=== PATIENT | female | born 1985 ===

== ENCOUNTER 2023-03-04 04:51 | Observation (INO) | payer MEDICAID ==
[2023-03-04] MEDS ORDERED: Tranexamic Acid IN NACL,ISO-OS 1,000 MG in Premix Bag 1 BAG IV PRN ×4 (06:10→08:07)
[2023-03-04] MEDS ORDERED: Lidocaine 1% 50 ML MDV INJECT PRN (06:10)
[2023-03-04] MEDS ORDERED: Methylergonovine 0.2 MG/1 ML Amp IM PRN ×2 (06:10→08:07)
[2023-03-04] MEDS ORDERED: Misoprostol 200 MCG Tab PO PRN (06:10)
[2023-03-04] MEDS ORDERED: Sodium Chloride 0.9% 20 ML SDV IV PRN (06:10)
[2023-03-04] MEDS ORDERED: Carboprost Tromethamine 250 MCG/1 mL Vial IM PRN (06:10)
[2023-03-04] MEDS ORDERED: Sodium Chloride 0.9% 2.5 ML Syringe FLUSH PRN (06:10)
[2023-03-04] MEDS ORDERED: Water For Irrigation,Sterile 1,000 ML Container IRR PRN (06:10)
[2023-03-04] MEDS ORDERED: Butorphanol 1 MG/ML SDV IVPUSH PRN (06:10)
[2023-03-04] MEDS ORDERED: Sodium Chloride 0.9% 10 ML Syringe FLUSH PRN (06:10)
[2023-03-04] MEDS ORDERED: Oxytocin/0.9 % Sodium Chloride 30 UNIT/500 ML BAG IV SCH (06:15)
[2023-03-04] MEDS ORDERED: Lactated Ringers 1,000 ML IV SCH (06:15)
[2023-03-04 06:50] LABS: HEMATOCRIT 35.3 % (37.0-47.0); MEAN CORPUSCULAR HEMOGLOBIN 31.4 pg (28.0-32.0); MEAN CORPUSCULAR VOLUME 92.4 fL (83.0-99.0); MEAN PLATELET VOLUME 10.6 fL (9.4-12.3); PLATELET COUNT,PLT 187 K/uL (150-400); RED BLOOD CELL COUNT 3.82 M/uL (4.10-5.30); WHITE BLOOD CELL COUNT,WBC 11.44 K/uL (3.9-11.3)
[2023-03-04] MEDS ORDERED: fentaNYL 100 MCG/2 ML SDV ONE (07:04)
[2023-03-04] MEDS ORDERED: Bupivacaine 0.25% 10 ML SDV ONE (07:04)
[2023-03-04] MEDS ORDERED: Phenylephrine HCl 0.5 MG/5 ML AMP IVPUSH PRN (07:22)
[2023-03-04] MEDS ORDERED: ePHEDrine 50 MG/ML SDV IVPUSH PRN ×2 (07:22)
[2023-03-04] MEDS ORDERED: Ropivacaine HCl/PF 400 MG in Premix Bag 1 BAG EPIDUR SCH (07:30)
[2023-03-04] MEDS ORDERED: Docusate Sodium 100 MG Cap PO PRN (08:07)
[2023-03-04] MEDS ORDERED: Witch Hazel Medicated Pads 40/Jar TOP PRN (08:07)
[2023-03-04] MEDS ORDERED: Benzocaine/Menthol 20%-0.5% Spray 78 GM Cannister TOP PRN (08:07)
[2023-03-04] MEDS ORDERED: Lanolin 100% Cream 7 GM Tube TOP PRN (08:07)
[2023-03-04] MEDS ORDERED: Acetaminophen 500 MG Tab PO PRN (08:07)
[2023-03-04 08:22] LABS: PH,UMBILICAL ARTERIAL 7.233 (7.18-7.38); PH,UMBILICAL VENOUS 7.308 (7.25-7.45)
[2023-03-04] MEDS: Ibuprofen 800 MG Tab PO PRN ×2 (11:54→20:02)
[2023-03-05 06:01] LABS: HEMATOCRIT 33.1 % (37.0-47.0); HEMOGLOBIN 11.2 g/dL (12.0-16.0)
== END 2023-03-05 10:40 | disposition home or self-care (01) ==
LOC: MW.OBCHECK 04:51 → MW.OB 04:52 → MW.OBCHECK 05:10 → MW.OB 12:04
PROVIDERS: ADMIT Obstetrics & Gynecology; ATTEND Obstetrics & Gynecology
DX: O80 Encounter for full-term uncomplicated delivery (principal); O09.523 Supervision of elderly multigravida, third trimester; O99.213 Obesity complicating pregnancy, third trimester; Z68.42 Body mass index [BMI] 45.0-49.9, adult; Z79.899 Other long term (current) drug therapy
CPT/HCPCS: 36415; 59025; 59409; 82803; 85014; 85018; 85027; 86592; 86850; 86900; 86901; A9270; J3010; J3490